=== PATIENT | female | born 1975 | race Caucasian/White ===

== ENCOUNTER 2020-12-01 19:31 | Emergency (ER) | payer MEDICAID, OTHER, SELFPAY ==
--- NOTE | ~2020-12-01 | XR_ITS ---
EXAMINATION: XR SHOULDER, LEFT CLINICAL INFORMATION: Left shoulder pain COMPARISON: None TECHNIQUE: Three views of the left shoulder. FINDINGS: There is no visible acute fracture, dislocation or subluxation seen. The glenohumeral joint space and the AC joint space is maintained normal. The soft tissues are normal. XR/XR shoulder LT min 2V IMPRESSION: Unremarkable left shoulder exam
[2020-12-01 20:22] VITALS: BP 171/103; PULSE 82; RESP 16; TEMP 36.9; O2SAT 98; BMI 30.4
--- NOTE | 2020-12-01 21:57 | ED_ITS ---
HPI - Extremity Problem General Chief complaint: Extremity Problem Stated complaint: Shoulder pain Time Seen by Provider: 12/01/20 21:57 Source: patient and devops solutions [employer] Mode of arrival: ambulatory Limitations: no limitations History of Present Illness HPI Narrative: This is a 45-year-old female came in for evaluation of left shoulder pain. Patient's symptoms started 2 days ago, patient declined any trauma or fall or strenuous activity, pain started in the neck radiates to the upper back of all left shoulder, described as constant pain, severe 10/10, no other associated symptoms with the pain. No trauma to the shoulder. Patient found to be hypertensive in the emergency department but no headache, no blurred vision, no chest pain, no abdominal pain. High blood pressure is likely due to pain. Related Data Previous Rx's Medication Instructions Recorded ibuprofen 800 mg tablet 800 mg PO Q8H PRN #14 tab 12/01/20 oxycodone 5 mg tablet 5 mg PO Q8H PRN #10 tab 12/01/20 oxycodone 5 mg tablet 5 mg PO Q8H PRN #10 tab 12/01/20 Allergies Allergy/AdvReac Type Severity Reaction Status Date / Time No Known Allergies Allergy Verified 12/01/20 20:31 Review of Systems Review of Systems: All other systems are reviewed and are negative Constitutional: Reports as per HPI and Reports no additional constitutional complaints Eyes: Reports as per HPI and Reports no additional eye complaints Reports system reviewed and no additional complaints, except as documented Cardiovascular: Reports as per HPI and Reports no additional cardiovascular complaints Respiratory: Reports as per HPI and Reports no additional respiratory complaints Gastrointestinal: Reports as per HPI and Reports no additional gastrointestinal complaints Genitourinary: Reports no additional female genitourinary complaints Musculoskeletal: Reports no additional musculoskeletal complaints Skin/Breast: Reports system reviewed and no additional complaints, except as docu Psychiatric: Reports no additional psychiatric complaints Endocrine: Reports no additional endocrine complaints Hematologic/Lymphatic: Reports no additional hematologic/lymphatic complaints Allergic/Immunologic: Reports no additional allergic/immunologic complaints Reports system reviewed and no additional complaints, except as documented and Reports Abnormal speech present [facility] Social History Social History Advance Directives: No Advance Directives Information Provided: Yes Physical Exam Vital Signs: Vital Signs: Last Vital Signs Temp 98.5 F 12/01/20 20:22 Pulse 82 12/01/20 20:22 Resp 16 12/01/20 20:22 BP 152/92 H 12/01/20 23:04 Pulse Ox 98 12/01/20 20:22 Body Mass Index 30.4 Vital signs have been reviewed as appeared to be correct. Blood pressure elevated. Heart rate normal. Respiration rate normal. Temperature normal. Oxygen saturation normal. Appearance: Alert. Oriented X3. No acute distress. Head: Normal external exam. Normocephalic. Atraumatic. No Monteiro signs noted. No raccoon eyes noted Eyes: PERRLA. EOMI. Conjunctiva and sclera normal. Eyelids normal. ENT: TM's Normal. Pharynx normal. Uvula midline. Moist mucous membranes. No trismus noted. No drooling noted. No muffled voice noted. Neck: Normal inspection. Neck supple. FROM. No adenopathy. Thyroid Normal. No meningeal signs. No neck mass noted. CVS: Normal heart rate and rhythm. Heart sound normal. No murmurs noted. Pulses normal throughout. Respiratory: No respiratory distress. Painless inspiration. Breath sounds normal. No wheezes/rales/rhonchi noted. Chest nontender. No accessory muscle usage noted or decreased air movement noted. Abdomen: Soft and nontender. Bowel sounds normal in all 4 quadrants. No distention noted. No organomegaly noted. No visible injury noted. Back: No CVA tenderness. Full range of motion noted. Skin: Skin warm and dry. Normal skin color. Normal skin turgor. No rashes/lesions/lacerations noted. Extremities: Left shoulder held in adduction position, increased pain with abduction, reproducible tenderness over upper left scapular border, increased pain when turning the head to the right side. Shoulder shows no deformity, no anterior fullness, full range motion, neurovascularly intact. Neuro: Oriented X 3. Cranial nerve exam: II-XII are grossly intact No motor deficit. No sensory deficit. Reflexes normal. Course Course Course Narrative: Assessment and plan. 45-year-old female speaks Turkmen presented with left shoulder pain, physical exam and x-ray are consistent with cervical radiculopathy. Patient was instructed to rest/heating pad/NSAIDs. Blood pressure found to be high believed to be secondary to severe pain. Blood pressure improved with pain medication. MDM - Extremity (Nontraumatic) Imaging Data Left shoulder x-ray: Radiologist's impression: Unremarkable left shoulder exam. Discharge Plan Discharge Clinical Impression: Cervical radiculopathy Patient Disposition: Home, Self-Care Instructions: Cervical Radiculopathy (ED) Prescriptions: New oxycodone 5 mg tablet 5 mg PO Q8H PRN (Reason: pain) Qty: 10 RF: 0 oxycodone 5 mg tablet 5 mg PO Q8H PRN (Reason: pain) Qty: 10 RF: 0 ibuprofen 800 mg tablet 800 mg PO Q8H PRN (Reason: pain) Qty: 14 RF: 0 Referrals: Physician,None [Primary Care Provider] - 2 days Stand Alone Forms: Work/School Release Interventions: ED Discharge Assessment Last Done: 12/01/20 23:11
[2020-12-01] MEDS: oxyCODONE HCl Immed Release 5 MG TABLET PO (22:12)
[2020-12-01] MEDS: Ibuprofen 400 MG TABLET PO (22:12)
[2020-12-01 23:04] VITALS: BP 152/92
== END 2020-12-01 23:21 | disposition home or self-care (01) ==
LOC: HO.ED 23:17
PROVIDERS: Emergency Provider Emergency Medicine
DX: M54.12 Radiculopathy, cervical region (principal); M25.512 Pain in left shoulder; I10 Essential (primary) hypertension; Z79.899 Other long term (current) drug therapy
CPT/HCPCS: 73030; 99283; 99284